=== PATIENT | female | born 1995 | race African-American/Black ===

== ENCOUNTER 2022-09-26 16:56 | Emergency (ER) | payer OTHER ==
[~2022-09-26] VITALS: Ht 180.3 cm; Wt 53.0 kg
[2022-09-26 17:02] VITALS: O2SAT 100
[2022-09-26 17:49] LABS: BASOPHILS % 0.6 % (0.0-2.0); EOSINOPHILS % 0.4 % (0.0-5.0); HEMATOCRIT. 41.3 % (36.0-48.0); HEMOGLOBIN. 14.3 g/dL (12.0-16.0); MEAN CORPUSCULAR HEMOGLOBIN 33.4 pg (28.0-32.0); MEAN CORPUSCULAR VOLUME 96.4 fL (81.0-99.0); MEAN PLATELET VOLUME 6.6 fl (7.4-10.4); PLATELET 329 x1000/uL (130-400); RED BLOOD CELL COUNT 4.28 mill/uL (4.2-5.4); RED CELL DISTRIBUTION WIDTH 12.1 % (11.6-14.6)
[2022-09-26 17:58] LABS: CHLORIDE 103 mEq/L (98-107)
[2022-09-26 18:22] LABS: HCG SCREEN NEGATIVE
[2022-09-26] MEDS ORDERED: IBUPROFEN 600MG TABLET PO ONE (19:00)
[2022-09-26] MEDS ORDERED: P50 MT (19:25)
[2022-09-26 19:27] VITALS: BP 120/80; PULSE 70; RESP 16; TEMP 98.3
== END 2022-09-26 19:28 | disposition home or self-care (01) ==
LOC: ER 17:07
DX: G62.9 Polyneuropathy, unspecified (principal)
CPT/HCPCS: 36415; 80053; 84703; 85025; 93970; 99284

== ENCOUNTER 2025-03-06 10:05 | Emergency (ER) | payer BC, MEDICAID ==
[~2025-03-06] VITALS: Ht 175.3 cm; Wt 61.0 kg
[~2025-03-06 10:05] MED LIST: P50 MT
[2025-03-06 10:09] VITALS: TEMP 36.7; O2SAT 100
[2025-03-06 10:14] VITALS: BP 103/70; PULSE 72; RESP 18; TEMP 98.06; O2SAT 100
[2025-03-06 10:58] LABS: CLARITY URINE CLEAR (CLEAR); COLOR URINE YELLOW (YELLOW); GLUCOSE URINE NEGATIVE (NEGATIVE); KETONES URINE NEGATIVE (NEGATIVE); LEUKOCYTE ESTERASE URINE NEGATIVE (NEGATIVE); NITRITE URINE NEGATIVE (NEGATIVE); OCCULT BLOOD URINE NEGATIVE (NEGATIVE); PH URINE 7.5 (4.5-8.0); PROTEIN URINE NEGATIVE (NEGATIVE); SPECIFIC GRAVITY URINE 1.005 (1.005-1.030); UROBILINOGEN URINE 0.2 E.U./dL (0.2-1.0)
[2025-03-09 07:08] LABS: CHLAMYDIA TRACHOMATIS NAA Negative (Negative); NEISSERIA GONORRHOEAE NAA Negative (Negative)
== END 2025-03-06 10:49 | disposition home or self-care (01) ==
LOC: ER 10:21
DX: Z11.3 Encounter for screening for infections with a predominantly sexual mode of transmission (principal); F14.90 Cocaine use, unspecified, uncomplicated
CPT/HCPCS: 81003; 81025; 87491; 87591; 99283